=== PATIENT | male | born 1975 ===

== ENCOUNTER 2021-09-04 15:23 | Emergency (ER) | payer SELFPAY ==
[2021-09-04 17:34] VITALS: BP 145/90
--- NOTE | 2021-09-04 18:17 | XRay Report ---
LEFT ANKLE 3 VIEW(S) INDICATION / CLINICAL INFORMATION: L ankle pain COMPARISON: None available. FINDINGS: BONES / JOINT(S): No acute fracture or subluxation. No significant arthritis. SOFT TISSUES: Significant circumferential soft tissue swelling of ankle concerning for ligamentous in jury/ankle sprain. ADDITIONAL FINDINGS: None. Signer Name: Feliciano Lizarraga MD Signed: 09/04/2021 6:13 PM Workstation Name: [id number]
[2021-09-04] MEDS ORDERED: ONDANSETRON 4 MG ODT TAB PO ONE (19:20)
[2021-09-04] MEDS ORDERED: IBUPROFEN 600 MG TAB PO ONE (19:20)
[2021-09-04] MEDS ORDERED: HYDROcodone/ACETAMINOPHEN 7.5-325MG TAB PO ONE (19:20)
--- NOTE | 2021-09-04 19:51 | Emergency Department Report ---
ED Lower Extremity HPI - General Chief Complaint: Extremity Injury, Lower Stated Complaint: LEFT ANKLE PAIN Source: patient Mode of arrival: Ambulatory Limitations: No Limitations - History of Present Illness Initial Comments: Patient is a 46-year-old male with no past medical history who presents to the ED with complaint of acute onset persistent left ankle pain and swelling after he twisted his left ankle when he stepped on a curb 24 hours ago. Patient states that the pain has been constant and persistent and the swelling is also worsened in the last 24 hours. Patient states that the pain is worse with any ambulation. Patient denies numbness and tingling or weakness of left ankle and left foot, fall, nausea and vomiting, dizziness, syncope, chest pain or s hortness of breath, low back pain, headache or heavy lifting. MD Complaint: ankle injury -: Sudden, hour(s) (24) Injury: Ankle: Left (Left ankle pain and swelling) Type of Injury: eversion Place: street/outdoors Severity: severe Severity scale (0 -10): 8 Improves With: nothing Worsens With: weight bearing, movement, palpation Context: walking (Twisted left ankle) Associated Symptoms: swelling, able to partially bear weight. denies: snap/pop sensation, numbness, tingling, unable to bear weight, ambulatory Treatments Prior to Arrival: NSAIDS - Related Data Previous Rx's Medication Instructions Recorded Last Taken Type Ibuprofen [Motrin] 800 mg PO Q8HR PRN #30 tablet 09/04/21 Unknown Rx methOCARBAMOL [Robaxin TAB] 750 mg PO BID PRN #24 tab 09/04/21 Unknown Rx traMADoL [Ultram] 50 mg PO Q6HR PRN #12 tablet 09/04/21 Unknown Rx Allergies Allergy/AdvReac Type Severity Reaction Status Date / Time No Known Allergies Allergy Unverified 09/04/21 17:34 ED Review of Systems ROS: Stated complaint: LEFT ANKLE PAIN Other details as noted in HPI Constitutional: denies: chills, fever Eyes: denies: eye pain, eye discharge, vision change ENT: denies: ear pain, throat pain Respiratory: denies: cough, shortness of breath, wheezing Cardiovascular: denies: chest pain, palpitations Endocrine: no symptoms reported Gastrointestinal: denies: abdominal pain, nausea, diarrhea Genitourinary: denies: urgency, dysuria Musculoskeletal: joint swelling (Left ankle pain and swelling), arthralgia (Left ankle pain and swelling). denies: back pain Skin: denies: rash, lesions Neurological: denies: headache, weakness, paresthesias Psychiatric: denies: anxiety, depression Hematological/Lymphatic: denies: easy bleeding, easy bruising ED Past Medical Hx - Medications Home Medications: Home Medications Medication Instructions Recorded Confirmed Last Taken Type Ibuprofen [Motrin] 800 mg PO Q8HR PRN #30 tablet 09/04/21 Unknown Rx methOCARBAMOL [Robaxin TAB] 750 mg PO BID PRN #24 tab 09/04/21 Unknown Rx traMADoL [Ultram] 50 mg PO Q6HR PRN #12 tablet 09/04/21 Unknown Rx ED Physical Exam - General Limitations: No Limitations General appearance: alert, in no apparent distress - Head Head exam: Present: atraumatic, normocephalic, normal inspection - Eye Eye exam: Present: normal appearance, PERRL, EOMI Pupils: Present: normal accommodation - ENT ENT exam: Present: normal exam, normal orophraynx, mucous membranes moist, TM's normal bilaterally, normal external ear exam - Neck Neck exam: Present: normal inspection, full ROM. Absent: tenderness - Respiratory Respiratory exam: Present: normal lung sounds bilaterally. Absent: respiratory distress, wheezes, rhonchi, stridor, chest wall tenderness, accessory muscle use, decreased breath sounds, prolonged expiratory - Cardiovascular Cardiovascular Exam: Present: regular rate, normal rhythm, normal heart sounds. Absent: systolic murmur, diastolic murmur, rubs, gallop - GI/Abdominal GI/Abdominal exam: Present: soft, normal bowel sounds. Absent: tenderness, guarding, rebound, hyperactive bowel sounds, hypoactive bowel sounds, organomegaly, mass, bruit - Extremities Exam Extremities exam: Present: normal inspection, tenderness (Palpable left ankle tenderness with mild swelling and limited range of motion due to pain), normal capillary refill, joint swelling (Swollen, tender left ankle with limited range of motion due to pain). Absent: full ROM (Limited range of motion of left ankle due to pain), pedal edema, calf tenderness - Back Exam Back exam: Present: normal inspection, full ROM. Absent: tenderness, CVA tenderness (R), CVA tenderness (L), muscle spasm, paraspinal tenderness, vertebral tenderness - Neurological Exam Neurological exam: Present: alert, oriented X3, CN II-XII intact, normal gait, reflexes normal - Psychiatric Psychiatric exam: Present: normal affect, normal mood - Skin Skin exam: Present: warm, dry, intact, normal color. Absent: rash ED Course Vital Signs 09/04/21 09/04/21 17:31 19:28 Temperature 98.8 F Pulse Rate 97 H Respiratory 18 15 Rate Blood Pressure 145/90 [Right] ED Lower Extremity MDM - Radiology Data Radiology results: report reviewed, image reviewed [facility] [address] [place] [address] XRay Report Signed Patient: SIMON GARCIA MR#: [id number] : 1975 Acct:[id number] Age/Sex: 46 / M ADM Date: 09/04/21 Loc: ED Attending Dr: Ordering Physician: LUBNA LAGUNAS MD Date of Service: 09/04/21 Procedure(s): XR ankle 3+V LT Accession Number(s): [id number] cc: ED MD BEBO Fluoro Time In Minutes: LEFT ANKLE 3 VIEW(S) INDICATION / CLINICAL INFORMATION: L ankle pain COMPARISON: None available. FINDINGS: BONES / JOINT(S): No acute fracture or subluxation. No significant arthritis. SOFT TISSUES: Significant circumferential soft tissue swelling of ankle concerning for ligamentous injury/ankle sprain. ADDITIONAL FINDINGS: None. Signer Name: Feliciano Lizarraga MD Signed: 09/04/2021 6:13 PM Workstation Name: [id number] Transcribed By: DB Dictated By: FELICIANO LIZARRAGA MD Electronically Authenticated By: FELICIANO LIZARRAGA MD Signed Date/Time: 09/04/211812 DD/ 11 TD/TT: - Medical Decision Making This is a 46-year-old male with no past medical history who presents to the ED with complaint of acute onset persistent left ankle pain and swelling after he twisted his left ankle when he stepped on a curb 24 hours ago. Patient states that the pain has been constant and persistent and the swelling is also worsened in the last 24 hours. Patient states that the pain is worse with any ambulation. In the ED, patient is alert and oriented x3 and is not in any distress. Patient was treated for pain in the ED. Left ankle x-ray showed no acute fractures or subluxations but soft tissue swelling around the ankle joint. Patient's left ankle was splinted with Damien wrap and the patient was discharged home on pain medications and muscle relaxants. Patient already had crutches with him and therefore was discharged home and advised to follow-up with his primary care physician in 5 to 7 days for reevaluation or return to the ED immediately if symptoms get worse. - Differential Diagnosis Ankle sprain; ankle fracture; muscle strain; ankle contusion Critical care attestation.: If time is entered above; I have spent that time in minutes in the direct care of this critically ill patient, excluding procedure time. ED Disposition Clinical Impression: Severe sprain of left ankle Qualifiers: Encounter type: initial encounter Qualified Code(s): S93.402A - Sprain of unspecified ligament of left ankle, initial encounter Muscle strain of left ankle Qualifiers: Encounter type: initial encounter Qualified Code(s): S96.912A - Strain of unspecified muscle and tendon at ankle and foot level, left foot, initial encounter Disposition: HOME / SELF CARE / HOMELESS Is pt being admited?: No Does the pt Need Aspirin: No Condition: Stable Instructions: Ankle Sprain, [id number], Muscle Strain, [id number] Additional Instructions: The left ankle x-ray showed no acute fractures or subluxations. Your injuries are likely musculoskeletal following the twisting injury he sustained 24 hours ago. Therefore take medications as needed for pain, drink plenty of fluids, follow-up with your primary care physician in 7 to 10 days for reevaluation or return to the ED immediately if symptoms get worse. Prescriptions: Ibuprofen [Motrin] 800 mg PO Q8HR PRN #30 tablet PRN Reason: Pain , Severe (7-10) methOCARBAMOL [Robaxin TAB] 750 mg PO BID PRN #24 tab PRN Reason: Muscle Spasm traMADoL [Ultram] 50 mg PO Q6HR PRN #12 tablet PRN Reason: Pain Referrals: MAISHA NORTON MD [Staff Physician] - 7-10 days Time of Disposition: 19:54 Print Language: DOMINICAN
== END 2021-09-04 21:44 | disposition home or self-care (01) ==
LOC: ED 15:23
DX: S96.912A Strain of unspecified muscle and tendon at ankle and foot level, left foot, initial encounter (principal); W22.8XXA Striking against or struck by other objects, initial encounter; Y93.89 Activity, other specified; Y92.89 Other specified places as the place of occurrence of the external cause; Y99.8 Other external cause status
CPT/HCPCS: 99283; J3490; Q0162